=== PATIENT | female | born 1965 | race Caucasian/White ===

== ENCOUNTER 2018-05-18 04:04 | Emergency (ER) | payer SELFPAY ==
[2018-05-18 04:08] VITALS: BP 129/76; PULSE 95; RESP 16; TEMP 37.2; O2SAT 99
--- NOTE | 2018-05-18 04:39 | DI.RAD_ITS ---
SYMPTOMS/DIAGNOSIS: PAIN RIGHT SHOULDER: Five views. There is a 1.5 cm calcific density superior to the humeral head concerning for an intra-articular body. There is a faint linear calcification adjacent to the greater tuberosity consistent with calcific tendinitis. The bones are intact and normally mineralized. No acute fracture or dislocation is seen. IMPRESSION: 1. Findings suggestive of an intra-articular calcific body. 2. Findings suggesting of calcific tendinosis.
--- NOTE | 2018-05-18 04:42 | W.ED.GENAD ---
Discharge Plan Disposition Patient Disposition: HOME Condition: Stable Discharge Details Chief Complaint: Orthopedic Clinical Impression: Right shoulder strain Primary Care Provider: Wilder Amador ED Provider: Cyril Holm Home Meds and New Rx's Prescriptions: New diazepam [Valium] 5 mg tablet 5 mg PO TID PRN (Reason: pain) Qty: 20 RF: 0 Continue ascorbic acid (vitamin C) [Vitamin C] 1,000 MG tablet extended release 1,000 mg PO DAILY RF: 0 Red Rasp Leaves RF: 0 vitamin P88-jgyoi acid 1 EACH tablet 1 ea PO RF: 0 Discharge Instructions Instructions: Diazepam (By mouth) Additional Instructions: you likely suffered a shoulder strain from repetitive lifting follow up with your primary care provider's office next week if you have high fevers, your shoulder becomes red or hot return to the emergency department You can take 1000mg tylenol and 600mg ibuprofen every 6 hours for pain as needed Stand Alone Forms: Work Release Discharge Data Discharge Physician: Cyril Holm Medical Decision Making 52 yo female who denies chronic medical problems, is a smoker, denies ivdu, comes in with right shoulder pain for a few days with no known trauma. She has pain over the right anterior shoulder and is unable to move the right shoulder due to pain. Has normal distal neurovascular exam and no significaitnt deformity to the shoulder. Denies chest pain or sob and pain seems musculoskeletal on exam so doubt acs at this time. No abdominal tenderness on exam or flannery's sign so doubt pathology such as cholecystitis. I suspect bursitis vs rotator cuff strain/injury but will xray to eval for possible fx though unlikely given no trauma. No warmth, redness or fevers so doubt septic joint xray negative on my read, I suspect either over use injury or rotator cuff injury given she states she does a lot of repetitive lifting at this job. Still no evidence of infection on my exam. Will have her f/u with pcp and return precautions given Differential Diagnosis bursitis, strain, contusion, rotator cuff injury Imaging Data Radiologic Study: Attestation: I personally reviewed and interpreted this imaging study as follows: Imaging: X-Ray My impression: no acute findings HPI General Mode of arrival: ambulatory. Date/Time Provider Initiated Documentation: 05/18/18 04:22. Limitations to Documentation: no limitations. Information obtained by: patient. History of Present Illness 52 year old F presents to the emergency department with the chief complaint of right shoulder pain, described as severe, with intensity rated at 8. Quality is described as sharp, and is localized to the right and upper extremity. Patient reports no radiation. Patient started experiencing this day(s) (2) and it has been constant. No relieving factors improve symptom(s), and Movement improves symptom(s), No exacerbating factors reported . Patient notes no other symptoms.. Patient did receive the following treatments prior to arrival, none Related Data Home Medications Medication Instructions Recorded Confirmed ascorbic acid (vitamin C) [Vitamin 1,000 mg PO DAILY 09/11/15 05/18/18 C] Red Rasp Leaves 09/01/16 vitamin W26-[id number] acid 1 ea PO 03/04/18 diazepam [Valium] 5 mg PO TID PRN #20 tab 05/18/18 Previous Rx's Medication Instructions Recorded diazepam [Valium] 5 mg PO TID PRN #20 tab 05/18/18 Allergies Allergy/AdvReac Type Severity Reaction Status Date / Time No Known Allergies Allergy Unverified 03/23/18 14:00 General Stated Complaint: Orthopedic LORI: 3 Review of Systems Review of Systems All systems reviewed & are unremarkable except as noted in HPI and below Constitutional Denies chills and Denies fever(s) Cardiovascular Denies chest pain and Denies dyspnea Respiratory Denies dyspnea Gastrointestinal Denies abdominal pain, Denies nausea and Denies vomiting Genitourinary Denies dysuria Musculoskeletal Denies joint swelling Integumentary/Breasts Denies rash Psychiatric Denies depression Allergic/Immunologic Reports urticaria PFSH Family History Mother Heart disease Hyperlipidemia Cerebrovascular accident Father CAD (coronary artery disease) Social History Smoking/Tobacco Use Status: Current every day Exam Const General: no acute distress Orientation: alert HENMT Head: normal to inspection Ears: external ears normal General nose exam: external nose normal Mouth: moist mucous membranes Eyes General: appearance normal, both eyes and all related structures Neck Neck: normal visual inspection Resp Effort & Inspection: normal respiratory effort and able to speak in complete sentences Cardio Rate: regular rate Skin General skin exam: no rashes or lesions noted Neuro General: alert and oriented x3 Extrem General: normal to inspection, normal capillary refill and other (unable to move the right shoulder due to apin, no warmth, redness or swelling, pain over the anterior shoulder) Psych Mental Status: mental status grossly normal Course Vital Signs Temperature 37.2 C 05/18/18 04:08 Pulse 95 H 05/18/18 04:08 Respiratory Rate 16 05/18/18 04:08 Blood Pressure 129/76 05/18/18 04:08 Pulse Oximetry 99 05/18/18 04:08 Temperature 37.2 C 05/18/18 04:08 Temperature Source Skin 05/18/18 04:08 Pulse 95 H 05/18/18 04:08 Respiratory Rate 16 05/18/18 04:08 Respiratory Effort Non-Labored 05/18/18 04:10 Blood Pressure 129/76 05/18/18 04:08 Blood Pressure Position Sitting 05/18/18 04:08 Pulse Oximetry 99 05/18/18 04:08 Oxygen Delivery Method Room Air 05/18/18 04:08 Oxygen Flow Rate 0 05/18/18 04:08 Pain Level 10 05/18/18 04:08
[2018-05-18] MEDS: Ibuprofen 600 MG TAB PO (04:44)
[2018-05-18] MEDS: Diazepam 5 MG TAB PO ×2 (04:45→05:45)
--- NOTE | 2018-05-18 04:47 | ED.GENADUL_ITS ---
Discharge Plan Disposition Patient Disposition: HOME Condition: Stable Discharge Details Chief Complaint: Orthopedic Clinical Impression: Right shoulder strain Primary Care Provider: Wilder Amador ED Provider: Cyril Holm Home Meds and New Rx's Prescriptions: New diazepam [Valium] 5 mg tablet 5 mg PO TID PRN (Reason: pain) Qty: 20 RF: 0 Continue ascorbic acid (vitamin C) [Vitamin C] 1,000 MG tablet extended release 1,000 mg PO DAILY RF: 0 Red Rasp Leaves RF: 0 vitamin Z98-tkyna acid 1 EACH tablet 1 ea PO RF: 0 Discharge Instructions Instructions: Diazepam (By mouth) Additional Instructions: you likely suffered a shoulder strain from repetitive lifting follow up with your primary care provider's office next week if you have high fevers, your shoulder becomes red or hot return to the emergency department You can take 1000mg tylenol and 600mg ibuprofen every 6 hours for pain as needed Stand Alone Forms: Work Release Discharge Data Discharge Physician: Cyril Holm Medical Decision Making 52 yo female who denies chronic medical problems, is a smoker, denies ivdu, comes in with right shoulder pain for a few days with no known trauma. She has pain over the right anterior shoulder and is unable to move the right shoulder due to pain. Has normal distal neurovascular exam and no significaitnt deformity to the shoulder. Denies chest pain or sob and pain seems musculoskeletal on exam so doubt acs at this time. No abdominal tenderness on exam or flannery's sign so doubt pathology such as cholecystitis. I suspect bursitis vs rotator cuff strain/injury but will xray to eval for possible fx though unlikely given no trauma. No warmth, redness or fevers so doubt septic joint xray negative on my read, I suspect either over use injury or rotator cuff injury given she states she does a lot of repetitive lifting at this job. Still no evidence of infection on my exam. Will have her f/u with pcp and return precautions given Differential Diagnosis bursitis, strain, contusion, rotator cuff injury Imaging Data Radiologic Study: Attestation: I personally reviewed and interpreted this imaging study as follows: Imaging: X-Ray My impression: no acute findings HPI General Mode of arrival: ambulatory . Date/Time Provider Initiated Documentation: 05/18/18 04:22 . Limitations to Documentation: no limitations . Information obtained by: patient . History of Present Illness 52 year old F presents to the emergency department with the chief complaint of right shoulder pain, described as severe, with intensity rated at 8. Quality is described as sharp, and is localized to the right and upper extremity. Patient reports no radiation. Patient started experiencing this day(s) (2) and it has been constant. No relieving factors improve symptom(s) , and Movement improves symptom(s), No exacerbating factors reported . Patient notes no other symptoms.. Patient did receive the following treatments prior to arrival, none Related Data Home Medications Medication Instructions Recorded Confirmed ascorbic acid (vitamin C) [Vitamin 1,000 mg PO DAILY 09/11/15 05/18/18 C] Red Rasp Leaves 09/01/16 vitamin C88-lzlzp acid 1 ea PO 03/04/18 diazepam [Valium] 5 mg PO TID PRN #20 tab 05/18/18 Previous Rx's Medication Instructions Recorded diazepam [Valium] 5 mg PO TID PRN #20 tab 05/18/18 Allergies Allergy/AdvReac Type Severity Reaction Status Date / Time No Known Allergies Allergy Unverified 03/23/18 14:00 General Stated Complaint: Orthopedic LORI: 3 Review of Systems Review of Systems All systems reviewed & are unremarkable except as noted in HPI and below Constitutional Denies chills and Denies fever(s) Cardiovascular Denies chest pain and Denies dyspnea Respiratory Denies dyspnea Gastrointestinal Denies abdominal pain, Denies nausea and Denies vomiting Genitourinary Denies dysuria Musculoskeletal Denies joint swelling Integumentary/Breasts Denies rash Psychiatric Denies depression Allergic/Immunologic Reports urticaria PFSH Family History Mother Heart disease Hyperlipidemia Cerebrovascular accident Father CAD (coronary artery disease) Social History Smoking/Tobacco Use Status: Current every day Exam Const General: no acute distress Orientation: alert HENMT Head: normal to inspection Ears: external ears normal General nose exam: external nose normal Mouth: moist mucous membranes Eyes General: appearance normal, both eyes and all related structures Neck Neck: normal visual inspection Resp Effort & Inspection: normal respiratory effort and able to speak in complete sentences Cardio Rate: regular rate Skin General skin exam: no rashes or lesions noted Neuro General: alert and oriented x3 Extrem General: normal to inspection, normal capillary refill and other (unable to move the right shoulder due to apin, no warmth, redness or swelling, pain over the anterior shoulder) Psych Mental Status: mental status grossly normal Course Vital Signs Temperature 37.2 C 05/18/18 04:08 Pulse 95 H 05/18/18 04:08 Respiratory Rate 16 05/18/18 04:08 Blood Pressure 129/76 05/18/18 04:08 Pulse Oximetry 99 05/18/18 04:08 Temperature 37.2 C 05/18/18 04:08 Temperature Source Skin 05/18/18 04:08 Pulse 95 H 05/18/18 04:08 Respiratory Rate 16 05/18/18 04:08 Respiratory Effort Non-Labored 05/18/18 04:10 Blood Pressure 129/76 05/18/18 04:08 Blood Pressure Position Sitting 05/18/18 04:08 Pulse Oximetry 99 05/18/18 04:08 Oxygen Delivery Method Room Air 05/18/18 04:08 Oxygen Flow Rate 0 05/18/18 04:08 Pain Level 10 05/18/18 04:08
--- NOTE | 2018-05-18 06:52 | DI.VRAD_ITS ---
EXAM: XR Right Shoulder Complete, 2 or More Views EXAM DATE/TIME: 05/18/2018 4:40 AM CLINICAL HISTORY: 52 years old, female; Pain; Shoulder; Right; Patient HX: PT states shoulder pain for 3 days but extreme now, unable to move arm away from body or raise arm at all. Unable to do an axilliary view due to pain and lrom TECHNIQUE: XR Right shoulder complete 2 or more views. COMPARISON: No relevant prior studies available. FINDINGS: Bones/joints: Intra-articular calcified body measuring 15 mm. No definite acute fracture or dislocation Soft tissues: Question faint linear calcific density adjacent to the greater tuberosity The visualized right hemithorax is unremarkable IMPRESSION: 15 mm calcified intra-articular body. Further evaluation with MRI may be helpful as indicated Question faint calcific tendinosis Dictated and Authenticated by: Lewis Pleitez MD. Ordering:TARA PIRES MD
--- NOTE | 2018-05-18 10:27 | PDOC.ERCMPRO ---
Care Management Progress Note 05/18-Dr. Holm requested assistance with a PCP f/u in one week for shoulder pain. Dr. Amadro PCP. Referral faxed to [facility] this am.
== END 2018-05-18 05:52 | disposition home or self-care (01) ==
LOC: ER 05:53
PROVIDERS: Emergency Provider Emergency Medicine; PCP Family Medicine
DX: S46.911A Strain of unspecified muscle, fascia and tendon at shoulder and upper arm level, right arm, initial encounter (principal); X50.0XXA Overexertion from strenuous movement or load, initial encounter
CPT/HCPCS: 99283; 73030

== ENCOUNTER 2018-05-19 23:31 | Emergency (ER) | payer SELFPAY ==
[2018-05-19 23:35] VITALS: BP 112/82; PULSE 98; RESP 18; TEMP 37; O2SAT 98
--- NOTE | 2018-05-19 23:40 | W.ED.GENAD ---
Discharge Plan Disposition Patient Disposition: HOME Condition: Good Discharge Details Chief Complaint: Orthopedic Clinical Impression: Calcific tendinitis of right shoulder Primary Care Provider: Wilder Amador ED Provider: Floyd Jose Home Meds and New Rx's Prescriptions: Continue ascorbic acid (vitamin C) [Vitamin C] 1,000 MG tablet extended release 1,000 mg PO DAILY RF: 0 Red Rasp Leaves RF: 0 vitamin J36-fdvme acid 1 EACH tablet 1 ea PO RF: 0 diazepam [Valium] 5 mg tablet 5 mg PO TID PRN (Reason: pain) Qty: 20 RF: 0 Discharge Instructions Instructions: Tendinitis (ED) Additional Instructions: Please call the orthopedics office for a follow-up appointment. We will place you on their referral list. The office number is [phone]. Sling as needed for comfort Apply ice to the area to reduce discomfort. May use the prescribed hydrocodone, if needed for severe pain. You declined injection to the shoulder this evening as we discussed. Return to ER if you develop a fever or any other acute concern. Continue all regularly prescribed medications Medical Decision Making 52-year-old female presents with persistent right shoulder pain after evaluation in the emergency department this week. Reviewed her x-ray obtained earlier this week. IMPRESSION: 1. Findings suggestive of an intra-articular calcific body. 2. Findings suggesting of calcific tendinosis. In the location of her pain I recommended and offered an injection of Kenalog and Marcaine for calcific tendinitis. She refused this. She states she felt she needed emergent MRI. I discussed with her that it is not available at this time but may be appropriate in the outpatient setting. Given that she refuses treatment with parenteral medicines, will trial a small amount of increased analgesia at home. I will refer her to orthopedics for recheck. She is offered a sling for comfort. HPI General Mode of arrival: ambulatory. Date/Time Provider Initiated Documentation: 05/19/18 23:35. Limitations to Documentation: no limitations. Information obtained by: patient. History of Present Illness 52 year old F presents to the emergency department with the chief complaint of Right shoulder pain, Quality is described as aching, and is localized to the right and upper extremity. Patient reports no radiation. Patient started experiencing this day(s) and it has been constant. No relieving factors improve symptom(s), Movement worsens symptoms . HPI Narrative: Right shoulder pain. Patient was seen over the past weekend with atraumatic right shoulder pain her x-ray at that time revealed calcific tendinitis and she is been referred to orthopedics for question of intra-articular calcification of the right shoulder. She has persistent, severe pain is worse with movement. She does not have numbness tingling. She has not fallen or hurt herself Related Data Home Medications Medication Instructions Recorded Confirmed ascorbic acid (vitamin C) [Vitamin 1,000 mg PO DAILY 09/11/15 05/19/18 C] Red Rasp Leaves 09/01/16 vitamin G49-disgh acid 1 ea PO 03/04/18 diazepam [Valium] 5 mg PO TID PRN #20 tab 05/18/18 05/19/18 Previous Rx's Medication Instructions Recorded diazepam [Valium] 5 mg PO TID PRN #20 tab 05/18/18 Allergies Allergy/AdvReac Type Severity Reaction Status Date / Time No Known Allergies Allergy Unverified 03/23/18 14:00 General Stated Complaint: Orthopedic LORI: 4 Review of Systems Review of Systems For systems reviewed and otherwise PFSH Family History Mother Heart disease Hyperlipidemia Cerebrovascular accident Father CAD (coronary artery disease) Social History Smoking/Tobacco Use Status: Current every day Exam Narrative Exam Narrative: GEN: awake, alert, oriented 3. Anxious HEAD: Normocephalic, atraumatic ENT: Mucous membranes moist, oropharynx unremarkable, External ear exam unremarkable EYES: PERRL, EOMI NECK: Full ROM, no JAMES, no menigismus EXT: The right anterior deltoid is exquisitely tender to palpation. Patient's motor is intact but limited by pain. Distal sensation intact. 2+ radial pulse in the bilateral upper extremity Neuro: Grossly normal neurologic exam, conversant, interactive. Psych: Speech fluent, thoughts congruent, affect normal Course Vital Signs Temperature 37 C 05/19/18 23:35 Pulse 98 H 05/19/18 23:35 Respiratory Rate 18 05/19/18 23:35 Blood Pressure 112/82 05/19/18 23:35 Pulse Oximetry 98 05/19/18 23:35 Temperature 37 C 05/19/18 23:35 Temperature Source Skin 05/19/18 23:35 Pulse 98 H 05/19/18 23:35 Respiratory Rate 18 05/19/18 23:35 Respiratory Effort Non-Labored 05/19/18 23:38 Blood Pressure 112/82 05/19/18 23:35 Blood Pressure Position Sitting 05/19/18 23:35 Pulse Oximetry 98 05/19/18 23:35 Oxygen Delivery Method Room Air 05/19/18 23:35 Oxygen Flow Rate 0 05/19/18 23:35 Pain Level 10 05/19/18 23:35
--- NOTE | 2018-05-19 23:50 | ED.GENADUL_ITS ---
Discharge Plan Disposition Patient Disposition: HOME Condition: Good Discharge Details Chief Complaint: Orthopedic Clinical Impression: Calcific tendinitis of right shoulder Primary Care Provider: Wilder Amador ED Provider: Floyd Jose Home Meds and New Rx's Prescriptions: Continue ascorbic acid (vitamin C) [Vitamin C] 1,000 MG tablet extended release 1,000 mg PO DAILY RF: 0 Red Rasp Leaves RF: 0 vitamin W58-jimhk acid 1 EACH tablet 1 ea PO RF: 0 diazepam [Valium] 5 mg tablet 5 mg PO TID PRN (Reason: pain) Qty: 20 RF: 0 Discharge Instructions Instructions: Tendinitis (ED) Additional Instructions: Please call the orthopedics office for a follow-up appointment. We will place you on their referral list. The office number is [phone]. Sling as needed for comfort Apply ice to the area to reduce discomfort. May use the prescribed hydrocodone, if needed for severe pain. You declined injection to the shoulder this evening as we discussed. Return to ER if you develop a fever or any other acute concern. Continue all regularly prescribed medications Medical Decision Making 52-year-old female presents with persistent right shoulder pain after evaluation in the emergency department this week. Reviewed her x-ray obtained earlier this week. IMPRESSION: 1. Findings suggestive of an intra-articular calcific body. 2. Findings suggesting of calcific tendinosis. In the location of her pain I recommended and offered an injection of Kenalog and Marcaine for calcific tendinitis. She refused this. She states she felt she needed emergent MRI. I discussed with her that it is not available at this time but may be appropriate in the outpatient setting. Given that she refuses treatment with parenteral medicines, will trial a small amount of increased analgesia at home. I will refer her to orthopedics for recheck. She is offered a sling for comfort. HPI General Mode of arrival: ambulatory . Date/Time Provider Initiated Documentation: 05/19/18 23:35 . Limitations to Documentation: no limitations . Information obtained by: patient . History of Present Illness 52 year old F presents to the emergency department with the chief complaint of Right shoulder pain, Quality is described as aching, and is localized to the right and upper extremity. Patient reports no radiation. Patient started experiencing this day(s) and it has been constant. No relieving factors improve symptom(s), Movement worsens symptoms . HPI Narrative: Right shoulder pain. Patient was seen over the past weekend with atraumatic right shoulder pain her x-ray at that time revealed calcific tendinitis and she is been referred to orthopedics for question of intra- articular calcification of the right shoulder. She has persistent, severe pain is worse with movement. She does not have numbness tingling. She has not fallen or hurt herself Related Data Home Medications Medication Instructions Recorded Confirmed ascorbic acid (vitamin C) [Vitamin 1,000 mg PO DAILY 09/11/15 05/19/18 C] Red Rasp Leaves 09/01/16 vitamin C64-kkzlg acid 1 ea PO 03/04/18 diazepam [Valium] 5 mg PO TID PRN #20 tab 05/18/18 05/19/18 Previous Rx's Medication Instructions Recorded diazepam [Valium] 5 mg PO TID PRN #20 tab 05/18/18 Allergies Allergy/AdvReac Type Severity Reaction Status Date / Time No Known Allergies Allergy Unverified 03/23/18 14:00 General Stated Complaint: Orthopedic LORI: 4 Review of Systems Review of Systems For systems reviewed and otherwise PFSH Family History Mother Heart disease Hyperlipidemia Cerebrovascular accident Father CAD (coronary artery disease) Social History Smoking/Tobacco Use Status: Current every day Exam Narrative Exam Narrative: GEN: awake, alert, oriented 3. Anxious HEAD: Normocephalic, atraumatic ENT: Mucous membranes moist, oropharynx unremarkable, External ear exam unremarkable EYES: PERRL, EOMI NECK: Full ROM, no JAMES, no menigismus EXT: The right anterior deltoid is exquisitely tender to palpation. Patient's motor is intact but limited by pain. Distal sensation intact. 2+ radial pulse in the bilateral upper extremity Neuro: Grossly normal neurologic exam, conversant, interactive. Psych: Speech fluent, thoughts congruent, affect normal Course Vital Signs Temperature 37 C 05/19/18 23:35 Pulse 98 H 05/19/18 23:35 Respiratory Rate 18 05/19/18 23:35 Blood Pressure 112/82 05/19/18 23:35 Pulse Oximetry 98 05/19/18 23:35 Temperature 37 C 05/19/18 23:35 Temperature Source Skin 05/19/18 23:35 Pulse 98 H 05/19/18 23:35 Respiratory Rate 18 05/19/18 23:35 Respiratory Effort Non-Labored 05/19/18 23:38 Blood Pressure 112/82 05/19/18 23:35 Blood Pressure Position Sitting 05/19/18 23:35 Pulse Oximetry 98 05/19/18 23:35 Oxygen Delivery Method Room Air 05/19/18 23:35 Oxygen Flow Rate 0 05/19/18 23:35 Pain Level 10 05/19/18 23:35
[2018-05-20] MEDS: HYDROcodone 5/Acetaminophen 325 TAB PO (00:03)
== END 2018-05-20 00:05 | disposition home or self-care (01) ==
LOC: ER 05-20 00:09
PROVIDERS: Emergency Provider Emergency Medicine; PCP Family Medicine
DX: M75.31 Calcific tendinitis of right shoulder (principal)
CPT/HCPCS: 99283; L3650

== ENCOUNTER 2018-05-20 12:27 | Emergency (ER) | payer SELFPAY ==
[2018-05-20 12:36] VITALS: BP 166/86; PULSE 90; RESP 16; TEMP 36.6; O2SAT 98
[2018-05-20] MEDS: Ketorolac 60 MG/2 ML VIAL IM (13:15)
--- NOTE | 2018-05-20 13:36 | W.ED.GENAD ---
Discharge Plan Disposition Patient Disposition: HOME Condition: Stable Discharge Details Chief Complaint: Orthopedic Clinical Impression: Frozen shoulder syndrome Primary Care Provider: Wilder Amador ED Provider: Chilango Frias Home Meds and New Rx's Prescriptions: New ibuprofen [IBU] 600 mg tablet 600 mg PO QID PRN (Reason: pain) Qty: 14 RF: 0 Continue ascorbic acid (vitamin C) [Vitamin C] 1,000 MG tablet extended release 1,000 mg PO DAILY RF: 0 Red Rasp Leaves RF: 0 vitamin I45-hmbal acid 1 EACH tablet 1 ea PO RF: 0 diazepam [Valium] 5 mg tablet 5 mg PO TID PRN (Reason: pain) Qty: 20 RF: 0 Discharge Instructions Instructions: Shoulder Pain (ED) Additional Instructions: Follow-up with your primary care provider as scheduled for later today. Otherwise you may continue to take the diazepam as needed for any spasms and you may start the ibuprofen at 10 PM tonight due to the injection of ketorolac he received in the emergency department. Feel free to return for any new or worsening symptoms otherwise follow through with the recommendation of your primary care provider. Stand Alone Forms: Work Release Referrals: Wilder Amador [Primary Care Provider] - 05/20/18 3:00 pm Medical Decision Making Patient presenting to the emergency department for chief complaint of severe right shoulder pain. She states that this started approximately 5 days ago after work. 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 Patient denies any injury or trauma, fever chills, or other symptoms. Patient has had multiple visits to the emergency department the past couple days and been given Valium and Vicodin. Patient states that Vicodin minimally helped and no relief with the Valium. Patient does report that yesterday evening and this morning that she had been drinking alcohol to help relieve the pain. Physical exam shows a exquisitely tender right shoulder joint with patient extremely hesitant/and able to perform any range of motion to right shoulder. Patient did present in a sling. Beyond tenderness and loss of range of motion physical exam is otherwise unremarkable. There is concern for possible frozen shoulder syndrome which I discussed with patient. Patient is adamant that she wants an MRI imaging after looking on the Internet and talking to her physician friend from [place]. I informed patient that this is not indicated initially for her complaint and that physical therapy is recommended. Patient was hesitant to this. Did discuss with patient possible steroids and she stated that she had a primary care appointment for later this afternoon and that they were going to do a joint injection. I did have care management call and verify that patient had an appointment with her primary care office which I feel is appropriate. I did inform patient that I do not do joint injections in the emergency department and this may be of some benefit to her if that truly is the plan otherwise I did consider placing patient on oral steroids but I feel that if patient is Ed scheduled with primary care they may also initiate that as well. I do feel that patient would benefit from physical therapy and if that is not successful or patient continues with severe pain referral to orthopedist for possible further MRI imaging as needed. Patient was informed not to use shoulder sling anymore and to perform gentle range of motion activities as tolerated by discomfort but she was unable to move her shoulder at all during my assessment. In control patient was given 60 mg IM ketorolac which did provide some minimal relief of discomfort. After discussion of diagnosis and plan of care patient has no further needs, questions, or concerns and states clear understanding to return to the emergency department for any worsening symptoms. Medical Records Medical records reviewed: Yes I reviewed the patient's medical records. HPI General Mode of arrival: ambulatory. Date/Time Provider Initiated Documentation: 05/20/18 12:37. Limitations to Documentation: no limitations. Information obtained by: patient. History of Present Illness 52 year old F presents to the emergency department with the chief complaint of Right shoulder pain, described as severe, with intensity rated at >10. Quality is described as sharp, and is localized to the right and upper extremity. Patient reports no radiation. Patient started experiencing this day(s) (5) and it has been constant. No relieving factors improve symptom(s), No exacerbating factors reported . Patient notes no other symptoms.; denies chest pain and fever/chills. Patient did receive the following treatments prior to arrival, other (Prescribed Vicodin, diazepam, and 2 beers ) Related Data Home Medications Medication Instructions Recorded Confirmed ascorbic acid (vitamin C) [Vitamin 1,000 mg PO DAILY 09/11/15 05/20/18 C] Red Rasp Leaves 09/01/16 vitamin T63-gomov acid 1 ea PO 03/04/18 diazepam [Valium] 5 mg PO TID PRN #20 tab 05/18/18 05/20/18 ibuprofen [IBU] 600 mg PO QID PRN #14 tab 05/20/18 Previous Rx's Medication Instructions Recorded diazepam [Valium] 5 mg PO TID PRN #20 tab 05/18/18 ibuprofen [IBU] 600 mg PO QID PRN #14 tab 05/20/18 Allergies Allergy/AdvReac Type Severity Reaction Status Date / Time No Known Allergies Allergy Unverified 05/20/18 12:40 General Stated Complaint: Orthopedic LORI: 4 Review of Systems Constitutional Denies chills and Denies fever(s) Cardiovascular Denies chest pain and Denies dyspnea Respiratory Denies chest congestion, Denies cough and Denies dyspnea Musculoskeletal Reports as per HPI Psychiatric Reports anxiety PFSH Family History Mother Heart disease Hyperlipidemia Cerebrovascular accident Father CAD (coronary artery disease) Social History Smoking/Tobacco Use Status: Current every day Exam Const General: cooperative, acute distress moderate; not respiratory, anxious, not diaphoretic and disheveled Orientation: alert, awake and oriented x3 Resp Effort & Inspection: normal respiratory effort and able to speak in complete sentences Cardio Rate: regular rate Rhythm: regular rhythm Neuro General: tone normal, moves all extremities and no focal motor deficits Extrem Right upper extremity: normal capillary refill, shoulder/upper arm Details: tenderness Location: of the A-C joint, of the proximal humerus and other (To any palpation of the joint capsule patient has severe tender which is nonfocal); not of the scapula and not of the mid-shaft humerus, axillary nerve sensory function normal and abnormal ROM Details: held in an abnormal fashion Details: in ABduction and in internal rotation, pain with active ROM, pain with passive ROM and with range as follows (Severely diminished with any range of motion activities); no swelling, no abrasions, no lacerations, no ecchymosis, no deformity and no unusual warmth, elbow/forearm Details: normal to inspection and normal ROM; no tenderness and wrist Details: normal to inspection and normal ROM; no tenderness Left upper extremity: normal to inspection, full ROM and normal capillary refill Course Vital Signs Temperature 36.6 C 05/20/18 12:36 Pulse 90 05/20/18 12:36 Respiratory Rate 16 05/20/18 12:36 Blood Pressure 166/86 H 05/20/18 12:36 Pulse Oximetry 98 05/20/18 12:36 Temperature 36.6 C 05/20/18 12:36 Temperature Source Skin 05/20/18 12:36 Pulse 90 05/20/18 12:36 Respiratory Rate 16 05/20/18 12:36 Respiratory Effort Non-Labored 05/20/18 12:36 Blood Pressure 166/86 H 05/20/18 12:36 Pulse Oximetry 98 05/20/18 12:36 Oxygen Delivery Method Room Air 05/20/18 12:36 Oxygen Flow Rate 0 05/20/18 12:36 Pain Level 10 05/20/18 12:36
--- NOTE | 2018-05-20 13:43 | ED.GENADUL_ITS ---
Discharge Plan Disposition Patient Disposition: HOME Condition: Stable Discharge Details Chief Complaint: Orthopedic Clinical Impression: Frozen shoulder syndrome Primary Care Provider: Wilder Amador ED Provider: Chilango Frias Home Meds and New Rx's Prescriptions: New ibuprofen [IBU] 600 mg tablet 600 mg PO QID PRN (Reason: pain) Qty: 14 RF: 0 Continue ascorbic acid (vitamin C) [Vitamin C] 1,000 MG tablet extended release 1,000 mg PO DAILY RF: 0 Red Rasp Leaves RF: 0 vitamin Y31-yvzvt acid 1 EACH tablet 1 ea PO RF: 0 diazepam [Valium] 5 mg tablet 5 mg PO TID PRN (Reason: pain) Qty: 20 RF: 0 Discharge Instructions Instructions: Shoulder Pain (ED) Additional Instructions: Follow-up with your primary care provider as scheduled for later today. Otherwise you may continue to take the diazepam as needed for any spasms and you may start the ibuprofen at 10 PM tonight due to the injection of ketorolac he received in the emergency department. Feel free to return for any new or worsening symptoms otherwise follow through with the recommendation of your primary care provider. Stand Alone Forms: Work Release Referrals: Wilder Amador [Primary Care Provider] - 05/20/18 3:00 pm Medical Decision Making Patient presenting to the emergency department for chief complaint of severe right shoulder pain. She states that this started approximately 5 days ago after work. 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 Patient denies any injury or trauma, fever chills, or other symptoms. Patient has had multiple visits to the emergency department the past couple days and been given Valium and Vicodin. Patient states that Vicodin minimally helped and no relief with the Valium. Patient does report that yesterday evening and this morning that she had been drinking alcohol to help relieve the pain. Physical exam shows a exquisitely tender right shoulder joint with patient extremely hesitant/and able to perform any range of motion to right shoulder. Patient did present in a sling. Beyond tenderness and loss of range of motion physical exam is otherwise unremarkable. There is concern for possible frozen shoulder syndrome which I discussed with patient. Patient is adamant that she wants an MRI imaging after looking on the Internet and talking to her physician friend from [place]. I informed patient that this is not indicated initially for her complaint and that physical therapy is recommended. Patient was hesitant to this. Did discuss with patient possible steroids and she stated that she had a primary care appointment for later this afternoon and that they were going to do a joint injection. I did have care management call and verify that patient had an appointment with her primary care office which I feel is appropriate. I did inform patient that I do not do joint injections in the emergency department and this may be of some benefit to her if that truly is the plan otherwise I did consider placing patient on oral steroids but I feel that if patient is Ed scheduled with primary care they may also initiate that as well. I do feel that patient would benefit from physical therapy and if that is not successful or patient continues with severe pain referral to orthopedist for possible further MRI imaging as needed. Patient was informed not to use shoulder sling anymore and to perform gentle range of motion activities as tolerated by discomfort but she was unable to move her shoulder at all during my assessment. In control patient was given 60 mg IM ketorolac which did provide some minimal relief of discomfort. After discussion of diagnosis and plan of care patient has no further needs, questions , or concerns and states clear understanding to return to the emergency department for any worsening symptoms. Medical Records Medical records reviewed: Yes I reviewed the patient's medical records. HPI General Mode of arrival: ambulatory . Date/Time Provider Initiated Documentation: 05/20/18 12:37 . Limitations to Documentation: no limitations . Information obtained by: patient . History of Present Illness 52 year old F presents to the emergency department with the chief complaint of Right shoulder pain, described as severe, with intensity rated at >10. Quality is described as sharp, and is localized to the right and upper extremity. Patient reports no radiation. Patient started experiencing this day(s) (5) and it has been constant. No relieving factors improve symptom(s) , No exacerbating factors reported . Patient notes no other symptoms.; denies chest pain and fever/chills. Patient did receive the following treatments prior to arrival, other (Prescribed Vicodin, diazepam, and 2 beers ) Related Data Home Medications Medication Instructions Recorded Confirmed ascorbic acid (vitamin C) [Vitamin 1,000 mg PO DAILY 09/11/15 05/20/18 C] Red Rasp Leaves 09/01/16 vitamin U59-hyydj acid 1 ea PO 03/04/18 diazepam [Valium] 5 mg PO TID PRN #20 tab 05/18/18 05/20/18 ibuprofen [IBU] 600 mg PO QID PRN #14 tab 05/20/18 Previous Rx's Medication Instructions Recorded diazepam [Valium] 5 mg PO TID PRN #20 tab 05/18/18 ibuprofen [IBU] 600 mg PO QID PRN #14 tab 05/20/18 Allergies Allergy/AdvReac Type Severity Reaction Status Date / Time No Known Allergies Allergy Unverified 05/20/18 12:40 General Stated Complaint: Orthopedic LORI: 4 Review of Systems Constitutional Denies chills and Denies fever(s) Cardiovascular Denies chest pain and Denies dyspnea Respiratory Denies chest congestion, Denies cough and Denies dyspnea Musculoskeletal Reports as per HPI Psychiatric Reports anxiety PFSH Family History Mother Heart disease Hyperlipidemia Cerebrovascular accident Father CAD (coronary artery disease) Social History Smoking/Tobacco Use Status: Current every day Exam Const General: cooperative, acute distress moderate; not respiratory, anxious, not diaphoretic and disheveled Orientation: alert, awake and oriented x3 Resp Effort & Inspection: normal respiratory effort and able to speak in complete sentences Cardio Rate: regular rate Rhythm: regular rhythm Neuro General: tone normal, moves all extremities and no focal motor deficits Extrem Right upper extremity: normal capillary refill, shoulder/upper arm Details: tenderness Location: of the A-C joint, of the proximal humerus and other (To any palpation of the joint capsule patient has severe tender which is nonfocal) ; not of the scapula and not of the mid-shaft humerus, axillary nerve sensory function normal and abnormal ROM Details: held in an abnormal fashion Details: in ABduction and in internal rotation, pain with active ROM, pain with passive ROM and with range as follows (Severely diminished with any range of motion activities); no swelling, no abrasions, no lacerations, no ecchymosis, no deformity and no unusual warmth, elbow/forearm Details: normal to inspection and normal ROM; no tenderness and wrist Details: normal to inspection and normal ROM; no tenderness Left upper extremity: normal to inspection, full ROM and normal capillary refill Course Vital Signs Temperature 36.6 C 05/20/18 12:36 Pulse 90 05/20/18 12:36 Respiratory Rate 16 05/20/18 12:36 Blood Pressure 166/86 H 05/20/18 12:36 Pulse Oximetry 98 05/20/18 12:36 Temperature 36.6 C 05/20/18 12:36 Temperature Source Skin 05/20/18 12:36 Pulse 90 05/20/18 12:36 Respiratory Rate 16 05/20/18 12:36 Respiratory Effort Non-Labored 05/20/18 12:36 Blood Pressure 166/86 H 05/20/18 12:36 Pulse Oximetry 98 05/20/18 12:36 Oxygen Delivery Method Room Air 05/20/18 12:36 Oxygen Flow Rate 0 05/20/18 12:36 Pain Level 10 05/20/18 12:36
[2018-05-20 13:49] VITALS: BP 166/86; PULSE 90; RESP 16; TEMP 36.6; O2SAT 98
== END 2018-05-20 13:49 | disposition home or self-care (01) ==
PROVIDERS: Emergency Provider Nurse Practitioner Family; PCP Family Medicine
DX: M75.01 Adhesive capsulitis of right shoulder (principal)
CPT/HCPCS: 96372; 99284; 99283; J1885

== ENCOUNTER 2019-03-15 01:36 | Outpatient (CLI) | payer SELFPAY ==
[2019-03-15 11:38] LABS: ALT 49 U/L (12-78); AST 29 U/L (15-37); Albumin 2.4 g/dL (3.4-5.0); Alkaline Phosphatase 61 U/L (46-116); Bilirubin, Direct 0.12 mg/dL (0.00-0.20); Bilirubin, Total 0.5 mg/dL (0.2-1.0); CREATININE 0.66 mg/dL (0.55-1.02); Glucose 107 mg/dL (70-100); Total Protein 7.7 g/dL (6.4-8.2)
[2019-03-15 12:20] LABS: Calculated LDL 115 mg/dL; Cholesterol 208 mg/dL (50-200); HDL Cholesterol 87 mg/dL (40-60); Triglyceride 33 mg/dL (30-150); Vitamin B12 1293 pg/mL (193-986)
== END 2019-03-15 01:56 ==
PROVIDERS: PCP Family Medicine; Visit Provider Family Medicine
DX: Z00.00 Encounter for general adult medical examination without abnormal findings (principal); R20.0 Anesthesia of skin; R56.9 Unspecified convulsions
CPT/HCPCS: 36415; 80061; 80076; 82947; 83721; 82565; 82607

== ENCOUNTER 2020-07-18 01:48 | Outpatient (CLI) | payer SELFPAY ==
--- NOTE | 2020-07-18 14:45 | DI.MAMMO_ITS ---
EXAM: MG MAMMO SCREENING CLINICAL HISTORY: screening. TECHNIQUE: Bilateral full field digital CC and MLO mammographic images were obtained with 3D tomosyn thesis and utilizing computer aided detection (CAD). COMPARISON: None. There are no prior mammograms available for comparison. FINDINGS: Fibroglandular tissue is moderately dense, decreasing sensitivity mammogram finding in underlying les ions. There are no CAD designations. There are no significant spiculated masses nor malignant-appearing microcalcification groups in eithe r breast. Small benign-appearing nodule right axillary tail appearance of benign lymph node. No sig nificant architectural distortion or skin thickening-traction. IMPRESSION: Benign findings. No radiographic evidence of malignancy. BI-RADS Category 2 - Benign Findings Breast Density - Category C - Heterogeneously dense Breast density Category C or D implies that the patient has dense breast tissue. Dense breast tissue can make it harder to find cancer on a mammogram. Dense breast tissue is also associated with an incr eased risk of breast cancer. This information about the result of the mammogram report was provided to the patient to raise their awareness. Use this report when you speak with the patient about their risks for breast cancer, which includes their family history. At that time, you may recommend additional screening tests (Ultrasoun d or MRI) as these tests may add significant information. A negative radiographic report should not delay biopsy if a dominant or clinically suspicious mass is present. Up to ten percent of cancers are not identified on mammography. A negative report may reinforce clinical impression. Adenosis and dense breasts may obscure an underlying neoplasm. False positive reports average 6 to 10%. Patient will receive a letter notifying them of these results.
== END 2020-07-18 02:08 ==
PROVIDERS: PCP Family Medicine; Visit Provider Nurse Practitioner Family
DX: Z12.31 Encounter for screening mammogram for malignant neoplasm of breast (principal)
CPT/HCPCS: 77063; 77067

== ENCOUNTER 2020-10-19 02:25 | Outpatient (CLI) | payer SELFPAY ==
[2020-10-20 18:02] LABS: COVID-19 RT-PCR UVMMC Result Negative (Negative)
== END 2020-10-19 02:26 | disposition home or self-care (01) ==
LOC: LBO 02:26
PROVIDERS: PCP Family Medicine; Visit Provider Family Medicine
DX: Z20.822 Contact with and (suspected) exposure to COVID-19 (principal)
CPT/HCPCS: U0003

== ENCOUNTER 2021-04-09 03:10 | Outpatient (CLI) | payer SELFPAY ==
[2021-04-09 12:24] LABS: HCT 43.4 % (36.0-46.0); HGB 14.3 g/dL (11.2-15.7); MCH 32.9 pg (27.0-33.0); MCHC 32.9 % (32.0-36.0); MCV 99.8 fL (80-95); MPV 11.7 fL (8.0-11.0); Platelet Count 270 10^3/uL (130-400); RBC 4.35 10^6/uL (3.93-5.22); WBC 8.87 10^3/uL (4.4-10.8)
[2021-04-09 12:43] LABS: CREATININE 0.6 mg/dL (0.55-1.02)
[2021-04-09 12:50] LABS: Iron 67 ug/dL (50-170)
[2021-04-09 13:11] LABS: ALT 50 U/L (14-59); AST 28 U/L (15-37); Albumin 4.6 g/dL (3.4-5.0); Alkaline Phosphatase 57 U/L (46-116); Bilirubin, Total 0.7 mg/dL (0.2-1.0); Calculated LDL 116 mg/dL (<100); Cholesterol 230 mg/dL (<200); HDL Cholesterol 106 mg/dL (40-60); Total Protein 7.8 g/dL (6.4-8.2); Triglyceride 40 mg/dL (<150); Vitamin B12 1089 pg/mL (193-986)
[2021-04-09 13:32] LABS: Hemoglobin A1C 5.4 % (<5.7)
[2021-04-09 14:23] LABS: Bilirubin, Direct 0.2 mg/dL (0.0-0.2)
[2021-04-09 22:12] LABS: Magnesium 1.8 mg/dL (1.7-2.8)
== END 2021-04-09 03:11 | disposition home or self-care (01) ==
LOC: LOS 03:11
PROVIDERS: Nurse Practitioner Family; PCP Family Medicine; Visit Provider Family Medicine
DX: E78.5 Hyperlipidemia, unspecified (principal); D64.9 Anemia, unspecified; R73.9 Hyperglycemia, unspecified; R53.83 Other fatigue; R03.0 Elevated blood-pressure reading, without diagnosis of hypertension; G72.89 Other specified myopathies; E83.42 Hypomagnesemia
CPT/HCPCS: 36415; 80061; 80076; 85027; 82565; 82607; 83036; 83540; 83735

== ENCOUNTER 2021-06-14 09:56 | Outpatient (REF) | payer SELFPAY ==
--- NOTE | 2021-06-14 09:30 | PAPFT_PTH ---
PATIENT: Sivan Franks LOC: [facility] U#:[id number] AGE/SX: 55/F ROOM: RE06/14/[address]: YOLY Godinez : 1965 BED: DIS: 06/14/2021 SPEC #: [id number] RECD: 06/14/21 13:06 STATUS: TRISTAN RELauri #: [id number] ANA: 06/14/21 09:[address]: Chaya Hernandez DEPT: [facility] Cyt[facility] RECD BY: Carline Henning ENTERED: 06/14/21 13:06 SP TYPE: PAPFT OT DR: Wilder Amador MD Tissues: 1 - CX/ENDOCX FOR PAP SMEARS Procedures: PAP THIN PREP/UVM Screening HPV DNA PROBE Comments:
== END 2021-06-14 09:57 | disposition home or self-care (01) ==
LOC: LBN 09:56
PROVIDERS: PCP Family Medicine; Visit Provider Nurse Practitioner Family
DX: Z12.4 Encounter for screening for malignant neoplasm of cervix (principal); Z11.51 Encounter for screening for human papillomavirus (HPV)
CPT/HCPCS: 88142; 87624

== ENCOUNTER 2022-03-25 10:41 | Outpatient (REF) | payer SELFPAY ==
[2022-03-25 13:07] LABS: Abs Immature Grans 0.02 10^3/uL (0.0-0.06); Absolute Basophil Count 0.08 10^3/uL (0.0-0.2); Absolute Eosinophil Count 0.07 10^3/uL (0.0-0.7); Absolute Lymphocyte Count 2.17 10^3/uL (1.2-3.4); Absolute Monocyte Count 0.54 10^3/uL (0.1-0.8); Eosinophils % 0.9; HCT 45.1 % (36.0-46.0); HGB 15.5 g/dL (11.2-15.7); Immature Grans % 0.2; Lymphocytes % 26.9; MCH 34.1 pg (27.0-33.0); MCHC 34.4 % (32.0-36.0); MCV 99 fL (80-95); MPV 11.5 fL (8.0-11.0); Monocytes % 6.7; Neutrophils % 64.3; Platelet Count 257 10^3/uL (130-400); RBC 4.55 10^6/uL (3.93-5.22); RDW 13.3 % (11.7-14.6); RDW-SD 49.2 fL; WBC 8.08 10^3/uL (4.4-10.8)
[2022-03-25 13:26] LABS: ALT 57 U/L (14-59); AST 31 U/L (15-37); Albumin 4.5 g/dL (3.4-5.0); Alkaline Phosphatase 58 U/L (46-116); BUN 8 mg/dL (7-18); Bilirubin, Total 0.7 mg/dL (0.2-1.0); CREATININE 0.6 mg/dL (0.55-1.02); Calcium 9.3 mg/dL (8.5-10.1); Chloride 105 mmol/L (98-107); Glucose 122 mg/dL (74-106); Lipase 60 U/L (73-393); Potassium 4.1 mmol/L (3.5-5.1); Sodium 143 mmol/L (136-145)
== END 2022-03-25 10:42 | disposition home or self-care (01) ==
LOC: LBN 10:41
PROVIDERS: PCP Family Medicine; Visit Provider Nurse Practitioner Family
DX: R10.9 Unspecified abdominal pain (principal)
CPT/HCPCS: 80053; 83690; 85025

== ENCOUNTER 2023-01-23 01:51 | Outpatient (CLI) | payer SELFPAY ==
[2023-01-23 12:12] LABS: Abs Immature Grans 0.02 10^3/uL (0.0-0.06); Absolute Basophil Count 0.07 10^3/uL (0.0-0.2); Absolute Eosinophil Count 0.12 10^3/uL (0.0-0.7); Absolute Lymphocyte Count 2.55 10^3/uL (1.2-3.4); Absolute Monocyte Count 0.72 10^3/uL (0.1-0.8); Absolute Neutrophil Count 6.25 10^3/uL (1.2-6.7); Basophils % 0.7; Eosinophils % 1.2; HCT 43.5 % (36.0-46.0); HGB 14.4 g/dL (11.2-15.7); Immature Grans % 0.2; Lymphocytes % 26.2; MCH 33.6 pg (27.0-33.0); MCHC 33.1 % (32.0-36.0); MCV 102 fL (80-95); MPV 11.3 fL (8.0-11.0); Monocytes % 7.4; Neutrophils % 64.3; Platelet Count 257 10^3/uL (130-400); RBC 4.28 10^6/uL (3.93-5.22); RDW 13.5 % (11.7-14.6); RDW-SD 50.8 fL; WBC 9.73 10^3/uL (4.4-10.8)
[2023-01-23 12:29] LABS: Iron 107 ug/dL (50-170); Total Iron Binding Capacity 356 ug/dL (250-450); Transferrin Sat 30 % (15-50)
[2023-01-23 12:39] LABS: AST 38 U/L (15-37); Calculated LDL 100 mg/dL (<100); Cholesterol 227 mg/dL (<200); Ferritin 157 ng/mL (8-252); HDL Cholesterol 121 mg/dL (40-60); Triglyceride 31 mg/dL (<150)
[2023-01-23 12:43] LABS: Hemoglobin A1C 5.4 % (<5.7)
[2023-01-24 10:56] LABS: Lab Add On Test TPN
== END 2023-01-23 01:52 | disposition home or self-care (01) ==
LOC: LOS 01:52
PROVIDERS: PCP Family Medicine; Visit Provider Family Medicine
DX: E78.5 Hyperlipidemia, unspecified (principal); D64.9 Anemia, unspecified; K76.0 Fatty (change of) liver, not elsewhere classified; L65.9 Nonscarring hair loss, unspecified; R73.9 Hyperglycemia, unspecified; R79.89 Other specified abnormal findings of blood chemistry
CPT/HCPCS: 36415; 80061; 82728; 83036; 83540; 83550; 84450; 85025

== ENCOUNTER 2024-11-11 01:04 | Outpatient (CLI) | payer SELFPAY ==
[2024-11-11 12:50] LABS: Hemoglobin A1C 5.6 % (<5.7)
[2024-11-11 12:52] LABS: ALT 37 U/L (14-59); AST 30 U/L (15-37); Albumin 4.2 g/dL (3.4-5.0); Alkaline Phosphatase 56 U/L (46-116); Anion Gap 12.4 mmol/L (3-11); BUN 7 mg/dL (7-18); Bilirubin, Total 1.5 mg/dL (0.2-1.0); CO2 26.6 mmol/L (21.0-32.0); CREATININE 0.5 mg/dL (0.55-1.02); Calcium 9.2 mg/dL (8.5-10.1); Calculated LDL 117 mg/dL (<100); Chloride 103 mmol/L (98-107); Cholesterol 234 mg/dL (<200); Estimated GFR 107.31 (mL/min/1.73m2); Glucose 103 mg/dL (74-106); HDL Cholesterol 108 mg/dL (>or=50); Sodium 142 mmol/L (136-145); TSH (W/Ref FT4) 1.13 uIU/mL (0.36-3.74); Total Protein 7.4 g/dL (6.4-8.2); Triglyceride 46 mg/dL (<150)
== END 2024-11-11 01:05 | disposition home or self-care (01) ==
LOC: LOS 01:04
PROVIDERS: PCP Nurse Practitioner Family; Visit Provider Nurse Practitioner Family
DX: Z13.220 Encounter for screening for lipoid disorders (principal); Z13.1 Encounter for screening for diabetes mellitus; R00.2 Palpitations; F10.10 Alcohol abuse, uncomplicated
CPT/HCPCS: 36415; 80053; 80061; 83036; 84443